=== PATIENT | male | born 1985 | race Caucasian/White ===

== ENCOUNTER 2020-04-22 18:10 | Emergency (ER) | payer OTHER ==
--- NOTE | 2020-04-22 19:02 | ER Document Report ---
ED Medical Screen (RME) - General Chief Complaint: Chest Pain Stated Complaint: CHEST PAIN Time Seen by Provider: 04/22/20 18:58 - HPI Notes: 04/22/20 18:59 Rapid Medical Exam HPI: Patient is 34-year-old male presents to the ER complaining of substernal chest pain shortness of breath since last night patient says he has some nasal congestion and used Afrin and subsequently developed chest pain shortness of breath. Symptoms been present all day today. Substernal chest pain is nonradiating. Denies fever chills hemoptysis, leg swelling, DVT or PE history. PT did just have a long drive from [facility]. no pleuritic pain. pts main concern is to r/o COVID. Physical Exam: GENERAL: Well-appearing, well-nourished and in no acute distress. HEAD: Atraumatic, normocephalic. ENT: Moist mucous membranes. RESP: Respirations even and unlabored CV- Regular rate. NEURO: No focal neurological deficits. Moves all extremities spontaneously and on command. My involvement in this patients care was limited to a rapid initial assessment. A comprehensive ED assessment and evaluation of the patient, analysis of test results, treatment, and completion of the medical decision making process will be performed by other ER providers. 04/22/20 19:05 Physical Exam - Vital signs Vitals: Temp Pulse Resp BP Pulse Ox 98.3 F 87 20 164/99 H 96 04/22/20 18:40 04/22/20 18:40 04/22/20 18:40 04/22/20 18:40 04/22/20 18:40 Course - Vital Signs Vital signs: Temp Pulse Resp BP Pulse Ox 98.3 F 87 20 164/99 H 96 04/22/20 18:40 04/22/20 18:40 04/22/20 18:40 04/22/20 18:40 04/22/20 18:40
--- NOTE | 2020-04-22 19:36 | RADIOLOGY REPORT (SQ) ---
EXAM DESCRIPTION: CHEST SINGLE VIEW IMAGES COMPLETED DATE/TIME: 04/22/2020 7:24 pm REASON FOR STUDY: chest pain, sob COMPARISON: None. EXAM PARAMETERS: NUMBER OF VIEWS: One view. TECHNIQUE: Single frontal radiographic view of the chest acquired. RADIATION DOSE: NA LIMITATIONS: None. FINDINGS: LUNGS AND PLEURA: No opacities, masses or pneumothorax. No pleural effusion. MEDIASTINUM AND HILAR STRUCTURES: No masses. Contour normal. HEART AND VASCULAR STRUCTURES: Heart normal in size. Normal vasculature. BONES: No acute findings. HARDWARE: None in the chest. OTHER: No other significant finding. IMPRESSION: NO ACUTE RADIOGRAPHIC FINDING IN THE CHEST. TECHNICAL DOCUMENTATION: JOB ID: [id number] 2010 [employer]- All Rights Reserved Reading location - IP/workstation name: [email or web address]
[2020-04-23 02:28] VITALS: BP 130/86
[2020-04-23 02:53] LABS: A TYPE INFLUENZA AG NEGATIVE (NEGATIVE); B INFLUENZA AG NEGATIVE (NEGATIVE)
--- NOTE | 2020-04-23 03:50 | ER Document Report ---
ED Cardiac - General Chief Complaint: Chest Pain Stated Complaint: CHEST PAIN Time Seen by Provider: 04/22/20 18:58 Mode of Arrival: Ambulatory Information source: Patient Notes: 04/22/20 20:46 - ED Nursing Note by JUAN GARCIA Accsophia Num: [id number] : 1985 Patient Age: [age] Y/O WITH A PMH OF ALLERGIES, PRESENTS REPORTING SUB-STERNAL CHEST 3/5, NON RA DIATING , REPRODUCIBLE. PT ALSO REPORTS THAT HE HAS NASAL DRAINAGE, R/T ALLERGIES. PT REPORTS THAT HE JUST RETURNED FROM [place] AND IS CONCERNED THAT HE CONTRACTED COVID. ED Medical Screen (Bella Notes) - General Chief Complaint: Chest Pain Stated Complaint: CHEST PAIN Time Seen by Provider: 04/22/20 18:58 - HPI Notes: 04/22/20 18:59 Rapid Medical Exam HPI: Patient is 34-year-old male presents to the ER complaining of substernal chest pain shortness of breath since last night patient says he has some nasal congestion and used Afrin and subsequently developed chest pain shortness of breath. Symptoms been present all day today. Substernal chest pain is nonradiating. Denies fever chills hemoptysis, leg swelling, DVT or PE history. PT did just have a long drive from [facility]. no pleuritic pain. pts main concern is to r/o COVID. MY NOTES 35-year-old male arrives with chief complaint of substernal chest pain and URI symptoms. Patient just had a long drive from [place]. Patient reports both he and drove down to family and also dog was with him. Dog is doing well and is doing well at this time. Patient works for [employer] and needs a work note. He reports has been here for 11 hours today. TRAVEL OUTSIDE OF THE [place] IN LAST 30 DAYS: No - HPI Patient complains to provider of: Chest pain, Chest tightness - Related Data Allergies/Adverse Reactions: No Known Allergies Allergy (Unverified 04/22/20 20:41) Home Medications: AFRIN Past Medical History - General Information source: Patient - Social History Smoking Status: Former Smoker Cigarette use (# per day): No Chew tobacco use (# tins/day): No Smoking Education Provided: No Frequency of alcohol use: None Drug Abuse: None Lives with: Family Family History: Reviewed & Not Pertinent Patient has suicidal ideation: No Patient has homicidal ideation: No Review of Systems - Review of Systems Constitutional: See HPI, Fever, Recent illness EENT: See HPI, Nose congestion Cardiovascular: No symptoms reported Respiratory: See HPI, Cough Gastrointestinal: No symptoms reported Genitourinary: No symptoms reported Male Genitourinary: No symptoms reported Musculoskeletal: No symptoms reported Skin: No symptoms reported Hematologic/Lymphatic: No symptoms reported Neurological/Psychological: No symptoms reported Physical Exam - Vital signs Vitals: Temp Pulse Resp BP Pulse Ox 98.3 F 87 20 164/99 H 96 04/22/20 18:40 04/22/20 18:40 04/22/20 18:40 04/22/20 18:40 04/22/20 18:40 Interpretation: Normal - General General appearance: Appears well, Alert - HEENT Head: Normocephalic, Atraumatic Eyes: Normal Pupils: PERRL - Respiratory Respiratory status: No respiratory distress Chest status: Nontender Breath sounds: Normal Chest palpation: Normal - Cardiovascular Rhythm: Regular Heart sounds: Normal auscultation Murmur: No - Abdominal Inspection: Normal Distension: No distension Bowel sounds: Normal Tenderness: Nontender Organomegaly: No organomegaly - Rectal Prostate: Other - Deferred - Genitourinary Scrotum: Other - Deferred - Back Back: Normal, Nontender - Extremities General upper extremity: Normal inspection, Nontender, Normal color, Normal ROM, Normal temperature General lower extremity: Normal inspection, Nontender, Normal color, Normal ROM, Normal temperature, Normal weight bearing. No: Verna's sign - Neurological Neuro grossly intact: Yes Cognition: Normal Orientation: AAOx4 Héctor Coma Scale Eye Opening: Spontaneous [place] Coma Scale Verbal: Oriented [place] Coma Scale Motor: Obeys Commands Héctor Coma Scale Total: 15 Speech: Normal Motor strength normal: LUE, RUE, LLE, RLE Sensory: Normal - Psychological Associated symptoms: Normal affect, Normal mood - Skin Skin Temperature: Warm Skin Moisture: Dry Skin Color: Normal Course - Vital Signs Vital signs: Temp Pulse Resp BP Pulse Ox 98.0 F 76 20 130/86 H 98 04/23/20 02:27 04/23/20 02:27 04/22/20 18:40 04/23/20 02:27 04/23/20 02:27 - Laboratory Results Critical Laboratory Results Reviewed: Yes Attending or Supervising Physician who Reviewed Labs: TYSON CRANE JR - Radiology Results Radiology Results Interpreted: 04/23/20 04:12 Chest x-ray read by Dr. Worrell Critical Radiology Results Reviewed: Yes Attending or Supervising Physician who Reviewed Radiology: TYSON CRANE JR Discharge - Discharge Clinical Impression: URI (upper respiratory infection) Qualifiers: URI type: unspecified URI Qualified Code(s): J06.9 - Acute upper respiratory infection, unspecified Condition: Stable Disposition: HOME, SELF-CARE Instructions: Upper Respiratory Illness ([facility]) Additional Instructions: Follow-up with personal doctor off work as directed return to ER as needed take medicines as directed and encourage fluids like chamomile tea. Also take [id number] melatonin at nighttime and also take vitamin D3 with meals in the morning. Prescriptions: Dexamethasone [Decadron 4 Mg Tablet] 4 mg PO DAILY #5 tablet Famotidine [Pepcid 20 mg Tablet] 20 mg PO BID #12 tablet Azithromycin [Zithromax 250 mg Tablet] 250 mg PO ASDIR PRN #6 tablet PRN Reason: Azithromycin [Zithromax 250 mg Tablet] 250 mg PO ASDIR PRN #6 tablet PRN Reason: Forms: Return to Work
[2020-04-23] MEDS ORDERED: IVERMECTIN 3 MG TABLET PO ONE (04:14)
--- NOTE | 2020-04-23 10:30 | EKG REPORT ---
SEVERITY:- NORMAL ECG - SINUS RHYTHM : Confirmed by: Bob Pichardo 23-Apr-2020 10:29:22
== END 2020-04-23 04:30 | disposition home or self-care (01) ==
LOC: ER 18:10
DX: J06.9 Acute upper respiratory infection, unspecified (principal); R07.9 Chest pain, unspecified; R09.89 Other specified symptoms and signs involving the circulatory and respiratory systems; Z20.828 Contact with and (suspected) exposure to other viral communicable diseases; R06.02 Shortness of breath; R09.81 Nasal congestion; Z87.891 Personal history of nicotine dependence
CPT/HCPCS: 93005; 99285; 87635; 87804; 71045; 93010; C9803